=== PATIENT | male | born 1960 | race Caucasian/White ===

== ENCOUNTER 2017-03-11 18:46 | Observation (INO) | payer OTHER ==
[~2017-03-11] VITALS: Ht 185.4 cm; Wt 106.6 kg
[~2017-03-11 18:46] MED LIST: LANTUS SOLOS100 U/M1; METFORMIN HCL500 MG
[2017-03-11] MEDS ORDERED: NOR10T PO (19:09)
[2017-03-11] MEDS ORDERED: TAMSULOSIN HYD0.4 M1 PO (19:09)
[2017-03-11] MEDS ORDERED: LISINOPRIL2.5 MG PO (19:09)
[2017-03-11] MEDS ORDERED: GLIPIZIDE ER2.5 M1 PO (19:10)
[2017-03-11] MEDS ORDERED: TOPROL XL25 MG PO (19:10)
[2017-03-11] MEDS ORDERED: LIPI20 PO (19:11)
[2017-03-11 19:39] LABS: BASOPHIL % 0.5 % (0-2); PLATELET COUNT 225 x10^3mcL (130-400); RED CELL DISTRIBUTION WIDTH 13.5 % (11.5-14.5)
[2017-03-11 19:54] LABS: CALCIUM 9.2 mg/dL (8.5-10.1); CARBON DIOXIDE 22.9 mmol/L (21-32); CHLORIDE SERUM 101 mmol/L (98-107); CREATININE SERUM 1.1 mg/dL (0.7-1.3); GFR1 > 60 mL/min; GLUCOSE SERUM 174 mg/dL (74-106); SODIUM SERUM 136 mmol/L (136-145)
[2017-03-11 20:06] LABS: ALBUMIN 4.1 g/dL (3.4-5.0); ALKALINE PHOSPHATASE 49 U/L (46-116); ALT/SGPT 39 U/L (16-63); AST/SGOT 16 U/L (15-37); BILIRUBIN TOTAL 0.8 mg/dL (0.20-1.00); MAGNESIUM 1.7 mg/dL (1.8-2.4); TOTAL PROTEIN, SERUM 7.5 g/dL (6.4-8.2)
[2017-03-11 22:16] VITALS: BP 124/81
[2017-03-12 05:36] VITALS: BP 122/78
[2017-03-12 07:31] LABS: BASOPHIL % 0.4 % (0-2); PLATELET COUNT 206 x10^3mcL (130-400); RED CELL DISTRIBUTION WIDTH 13.4 % (11.5-14.5)
[2017-03-12 07:59] LABS: CALCIUM 8.9 mg/dL (8.5-10.1); CARBON DIOXIDE 22.7 mmol/L (21-32); CHLORIDE SERUM 105 mmol/L (98-107); CREATININE SERUM 0.8 mg/dL (0.7-1.3); GFR1 > 60 mL/min; GLUCOSE SERUM 163 mg/dL (74-106); POTASSIUM SERUM 3.9 mmol/L (3.5-5.1); SODIUM SERUM 138 mmol/L (136-145)
[2017-03-12 09:13] VITALS: BP 122/79
[2017-03-12 13:15] VITALS: BP 140/84
[2017-03-12 17:15] VITALS: BP 127/79
[2017-03-12 18:26] VITALS: BP 140/84
== END 2017-03-12 18:50 | disposition home or self-care (01) | DRG 312 ==
LOC: ED 18:46 → DU 21:06
PROVIDERS: Emergency Medicine; Internal Medicine; ADMIT Internal Medicine Pulmonary Disease
DX: R55 Syncope and collapse (principal); R91.8 Other nonspecific abnormal finding of lung field; E11.9 Type 2 diabetes mellitus without complications; I10 Essential (primary) hypertension; N40.0 Benign prostatic hyperplasia without lower urinary tract symptoms; E78.5 Hyperlipidemia, unspecified; F17.200 Nicotine dependence, unspecified, uncomplicated; Z79.84 Long term (current) use of oral hypoglycemic drugs
CPT/HCPCS: 36600; 82962; 83880; 85378; G0378; J1650; J7030; Q9967

== ENCOUNTER 2017-06-02 11:29 | Emergency (ER) | payer OTHER ==
[~2017-06-02 11:29] MED LIST changes: +GLIPIZIDE ER2.5 M1 PO; +LIPI20 PO; +LISINOPRIL2.5 MG PO; +NOR10T PO; +TAMSULOSIN HYD0.4 M1 PO; +TOPROL XL25 MG PO
[2017-06-02 11:37] VITALS: BP 140/99
== END 2017-06-02 12:51 | disposition home or self-care (01) ==
LOC: ED 11:29
DX: K59.00 Constipation, unspecified (principal); I10 Essential (primary) hypertension; E11.9 Type 2 diabetes mellitus without complications; E78.00 Pure hypercholesterolemia, unspecified; N40.0 Benign prostatic hyperplasia without lower urinary tract symptoms; Z79.84 Long term (current) use of oral hypoglycemic drugs; Z79.899 Other long term (current) drug therapy; Z71.6 Tobacco abuse counseling
CPT/HCPCS: 99406

== ENCOUNTER 2017-11-12 12:40 | Emergency (ER) | payer OTHER ==
[~2017-11-12] VITALS: Ht 185.4 cm; Wt 100.2 kg
[2017-11-12 12:52] VITALS: Ht 185.4 cm; Wt 100.2 kg
[2017-11-12 15:39] VITALS: BP 112/73
== END 2017-11-12 15:39 | disposition home or self-care (01) ==
LOC: ED 12:40
DX: K08.89 Other specified disorders of teeth and supporting structures (principal); I10 Essential (primary) hypertension; E11.9 Type 2 diabetes mellitus without complications; E78.00 Pure hypercholesterolemia, unspecified; Z87.891 Personal history of nicotine dependence

== ENCOUNTER 2018-11-03 07:01 | Emergency (ER) | payer OTHER ==
[2018-11-03 07:41] LABS: microscopic required? NO
[2018-11-03 07:46] LABS: BASOPHIL % 0.6 % (0-2); PLATELET COUNT 243 x10^3mcL (130-400)
[2018-11-03 08:00] LABS: UA SPECIFIC GRAVITY <=1.005 (1.005-1.035); urine erythrocyte NEGATIVE (NEGATIVE)
[2018-11-03 08:01] LABS: ALBUMIN 3.9 g/dL (3.4-5.0); ALKALINE PHOSPHATASE 139 U/L (46-116); ALT/SGPT 49 U/L (16-63); AST/SGOT 16 U/L (15-37); BILIRUBIN TOTAL 0.5 mg/dL (0.20-1.00); CALCIUM 9.6 mg/dL (8.5-10.1); CARBON DIOXIDE 26.7 mmol/L (21-32); CHLORIDE SERUM 98 mmol/L (98-107); GFR1 > 60 mL/min; POTASSIUM SERUM 4.7 mmol/L (3.5-5.1); SODIUM SERUM 133 mmol/L (136-145)
[2018-11-03 08:05] LABS: GLUCOSE SERUM 545 mg/dL (74-106)
[2018-11-03 10:15] VITALS: BP 120/82
== END 2018-11-03 10:15 | disposition home or self-care (01) ==
LOC: ED 07:01
PROVIDERS: Emergency Medicine
DX: R31.9 Hematuria, unspecified (principal); E11.9 Type 2 diabetes mellitus without complications; I10 Essential (primary) hypertension; E78.00 Pure hypercholesterolemia, unspecified; N40.0 Benign prostatic hyperplasia without lower urinary tract symptoms
CPT/HCPCS: 82962; J1815; J7030; Q0092

== ENCOUNTER 2019-12-11 17:33 | Emergency (ER) | payer OTHER ==
[~2019-12-11] VITALS: Ht 185.4 cm; Wt 97.5 kg
[2019-12-11 17:47] VITALS: BP 117/84; Ht 185.4 cm; Wt 97.5 kg
== END 2019-12-11 18:23 | disposition left against medical advice (07) ==
LOC: ED 17:33
DX: G93.41 Metabolic encephalopathy (principal); F10.129 Alcohol abuse with intoxication, unspecified; E11.9 Type 2 diabetes mellitus without complications; I10 Essential (primary) hypertension; F17.210 Nicotine dependence, cigarettes, uncomplicated; E78.00 Pure hypercholesterolemia, unspecified
CPT/HCPCS: 99406